=== PATIENT | female | born 1995 | race Caucasian/White ===

== ENCOUNTER 2018-11-14 10:41 | Emergency (ER) | payer MEDICAID, OTHER ==
[~2018-11-14] VITALS: Ht 160 cm; Wt 111.9 kg
[~2018-11-14 10:41] MED LIST: ACET500C5 PO; BEN25 PO; CEPH-443 PO; METF-849 PO; PRED20TA PO; PREN-99 PO
[2018-11-14 10:43] VITALS: BP 138/82; PULSE 99; RESP 18; Ht 160 cm; Wt 111.9 kg
== END 2018-11-14 13:57 | disposition home or self-care (01) ==
LOC: FTE 10:41
DX: O20.9 Hemorrhage in early pregnancy, unspecified (principal); O13.1 Gestational [pregnancy-induced] hypertension without significant proteinuria, first trimester; Z3A.01 Less than 8 weeks gestation of pregnancy
CPT/HCPCS: 36415; 76801; 76817; 80053; 81001; 83690; 84702; 85025; 86900; 86901; 87086